=== PATIENT | male | born 1980 | race Caucasian/White ===

== ENCOUNTER 2023-05-02 15:30 | Emergency (ER) | payer SELFPAY ==
[~2023-05-02] VITALS: Ht 182.9 cm; Wt 86.2 kg
[2023-05-02 15:32] VITALS: BP 126/74
[2023-05-02] MEDS ORDERED: ATA25 PO (15:55)
[2023-05-02] MEDS ORDERED: HYD1C TP (15:55)
--- NOTE | 2023-05-02 16:40 | NUR ---
NOTED PATIENT OUTSIDE OF ER TALKING ON CELLPHONE
[2023-05-02 17:00] VITALS: BP 126/74
--- NOTE | 2023-05-02 17:11 | NUR ---
PARAMEDICS SHOWED UP SAYS PT CALLED 911 AND WANTS TO BE TAKEN TO [facility]. STAFF ASKED PT WHY, HE RESPONDED "I [facility] TO [facility] TO [facility]"
--- NOTE | 2023-05-02 17:11 | NUR ---
Patient discharged with v/s stable. Written and verbal after care instructions given and explained. Patient alert, oriented and verbalized understanding of instructions. Ambulatory with steady gait. All questions addressed prior to discharge. ID band removed. Patient advised to follow up with PMD. Rx of ATARAX, HYDROCORTISONE given. Patient educated on indication of medication including possible reaction and side effects. Opportunity to ask questions provided and answered.
== END 2023-05-02 17:11 | disposition home or self-care (01) ==
LOC: MED 15:30
DX: L40.9 Psoriasis, unspecified (principal); Z79.899 Other long term (current) drug therapy
CPT/HCPCS: 99283